=== PATIENT | female | born 1990 | race Asian ===

== ENCOUNTER 2020-12-07 16:15 | Inpatient (IN) ==
[2020-12-07] MEDS ORDERED: OXYTOCIN 30 UNITS/500 ML BAG IV PRN (16:25)
--- NOTE | 2020-12-07 16:53 | History & Physical Report ---
Date of Service December 07, 2020 Assessment & Plan (1) Supervision of normal intrauterine in primigravida: 30yo at 40.5 weeks GA. Presents in labor. 1. Fetus: Cat 1 2. Labor: Regular contraction. 3. GBS negative 4. Vitals: WNL History of Present Illness Primary Care Provider: [place] PCP 30yo at 40.5 weeks GA. Presents in early labor. Reporting regular painful contractions. Denies VB, LOF. Good FM. uncomplicated to date. Blood Type & RH O+ Antibody Screen negative HCT/HGB 35.9/12.5 Platelets 225 Pap Test Chlamydia negative Gonorrhea negative Rubella immune RPR negative (syphillis antibody) Urine Culture/Screen < 10,000 cfu/ml HBsAg non reactive HIV non reactive MCV 93.0 AFP- negative (06/16/20) Allergies Allergy/AdvReac Type Severity Reaction Status Date / Time No Known Allergies Allergy Verified 12/07/20 17:19 Home Medications Medication Instructions Recorded Confirmed Type ferrous sulfate [iron] 325 mg 12/07/20 History prenat.vits,manuela,cak-toke-ebvbi 1 tab PO DAILY 12/07/20 12/07/20 History [ Vitamin] Patient History Medical History Pain in symphysis pubis during Symphysis pubis disruption Vaginal bleeding during Surgical History History of hip surgery S/P dilation and curettage Social History (Updated 08/31/20 @ 09:50 by Karen Stacy) Smoking Status: Never smoker Hx Alcohol Use: No Hx Substance Use: No Preferred Language: Luxembourgish 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 Other Information That Helps Us Care for You: No Feels Safe at Home: Yes Safety Concerns: Feels Safe At This Time Assistive Devices: None Physical Exam Constitutional: WD/WN, vitals as above Respiratory: normal respiratory effort; no respiratory distress, no labored breathing and no retractions Cardiovascular: Rate/Rhythm: regular rate Gastrointestinal (Abdomen): Percussion/Palpation: abdomen soft; abdomen nontender, no guarding and abdomen not rigid Genitourinary: OB Exam Abdomen: + vertex Manual OB Exam: + cervical dilation 3 cm, + cervical effacement 90% and + station -1 OB Exam Monitor Tracing: + external FHT monitor used, + external uterine monitor used, + category I and + normal FHT variability; no early decelerations present, no late decelerations present and no variable decelerations Results & Data ([facility]) Vital Signs (Past 12 Hours) Vital Signs Pulse BP 12/07/20 16:20 63 97/60 L Coding Level of Care Code None Diagnoses Supervision of normal intrauterine in primigravida Z34.00
[2020-12-07 16:54] LABS: Hematocrit (blood only) 35.8 % (37-47); Hemoglobin 12.7 g/dL (12.0-16.0); Mean Corpuscular Hemoglobin 34.4 pg (25-34); Mean Corpuscular Hgb Conc 35.5 g/dL (32-36); Mean Platelet Volume 9.7 fL (7.4-10.4); Platelet Count 164 K/uL (130-400); RDW Coefficient of Variation 12.5 % (11.5-14.5); RDW Standard Deviation 44.1 fL (36.4-46.3); Red Blood Count 3.69 M/uL (4.2-5.4); White Blood Count 9.73 K/uL (4.8-10.8)
[2020-12-07] MEDS: BUTORPHANOL TARTRATE 1 MG/ML VIAL IV PRN ×2 (17:04→20:51)
[2020-12-07] MEDS: LACTATED RINGER'S 1,000 ML IV PRN ×2 (17:04→20:30)
--- NOTE | 2020-12-07 19:16 | Labor Progress Brief Note ---
Date of Service December 07, 2020 Subjective Reason For Note: Routine Evaluation Assessment & Plan (1) Supervision of normal intrauterine in primigravida: 30yo at 40.5 weeks GA. Presents in labor. 1. Fetus: Cat 1 2. Labor: Regular contraction. Progressing well 3. GBS negative 4. Vitals: WNL Admission and Anticipated Discharge Date Admission Date: December 07, 2020 Physical Exam Genitourinary: OB Exam Abdomen: + vertex Manual OB Exam: + cervical dilation 5 cm, + cervical effacement 90% and + station -1 OB Exam Monitor Tracing: + external uterine monitor used, + intra-uterine pressure catheter used, + category I, + normal FHT variability and + variable decelerations; no early decelerations present and no late decelerations present Results & Data ([facility]) Vital Signs (Past 12 Hours) Vital Signs Temp Pulse Resp BP 12/07/20 17:37 67 124/75 12/07/20 17:06 58 L 116/72 12/07/20 16:39 36.7 C 63 20 97/60 L 12/07/20 16:20 63 97/60 L Coding Level of Care Code None Diagnoses Supervision of normal intrauterine in primigravida Z34.00
[2020-12-07] MEDS ORDERED: MINERAL OIL 30 ML UDC ONE (21:01)
[2020-12-08] MEDS ORDERED: LIDOCAINE HCL 1% 20 ML VIAL ONE (01:34)
[2020-12-08] MEDS ORDERED: MINERAL OIL 30 ML UDC ONE (02:37)
[2020-12-08] MEDS ORDERED: ACETAMINOPHEN 325 MG TAB PO PRN (03:09)
[2020-12-08] MEDS ORDERED: BENZOCAINE 20% AER SPR 82.5 GM CAN EXT PRN (03:09)
[2020-12-08] MEDS ORDERED: bisacodyL 10 MG SUPP PR PRN (03:09)
[2020-12-08] MEDS ORDERED: OXYTOCIN 30 UNITS/500 ML BAG IV PRN (03:09)
[2020-12-08] MEDS ORDERED: HYDROCORTISONE ACETATE 25 MG SUPP PR PRN (03:09)
[2020-12-08] MEDS ORDERED: DIPHTHERIA/TETANUS/PERTUSSIS 0.5 ML SYR/VIAL IM ONE (03:09)
[2020-12-08] MEDS ORDERED: SUPERCREAM 0.870% 15 GM JAR EXT PRN (03:09)
[2020-12-08] MEDS: IBUPROFEN 600 MG TAB PO PRN ×3 (04:52→22:12)
[2020-12-08] MEDS: DOCUSATE SODIUM 100 MG CAP PO SCH ×2 (09:43→20:04)
[2020-12-08] MEDS: PRENATAL VITAMIN 1 TAB PO SCH (09:43)
--- NOTE | 2020-12-08 10:04 | Delivery Summary ---
DATE OF OPERATION: 12/08/2020 PREOPERATIVE DIAGNOSES: 1. Normal spontaneous vaginal delivery with first-degree perineal laceration repair. 2. Spontaneous labor. POSTOPERATIVE DIAGNOSES: 1. Normal spontaneous vaginal delivery with first-degree perineal laceration repair. 2. Spontaneous labor. 3. Status post delivery. ESTIMATED BLOOD LOSS: 300 mL DRAINS: None. FLUIDS: Continuous lactated ringer. URINE OUTPUT: Not measured. COMPLICATIONS: None. FINDINGS: Viable with weight and Apgars pending. INDICATIONS: The patient is a 30-year-old who presented in active labor. The patient progressed without augmentation to complete-complete and +1 station, and felt a strong urge to push. The patient pushed for approximately 3 hours to achieve delivery. DESCRIPTION OF PROCEDURE: The patient progressed to 10 cm dilated, 100% effaced, +1 station, pushed over intact perineum without anesthesia and delivered a viable with weight and Apgars as noted above. Head of the delivered in OP position, restituted to left transverse. No nuchal cord was noted. Body and shoulders quickly followed. was noted to be vigorous upon delivery and a 1-minute delayed cord clamping was initiated. The cord was then double clamped and cut. remained on the maternal abdomen. Cord blood was obtained. Attention was turned to delivery of the placenta, delivered intact, 3-vessel cord, gentle cord traction. On inspection of perineum, vagina, and cervix there was noted to be a first degree perineal laceration, which was repaired with a continuous running locked stitch. Needle, sponge and instrument counts were correct at the completion of the case with mother and stable in immediate post-delivery period. I attest to the content of the Intraoperative Record and any orders documented therein. Any exception s are noted below.
[2020-12-09 06:26] LABS: Hematocrit (blood only) 33.2 % (37-47); Hemoglobin 11.6 g/dL (12.0-16.0)
--- NOTE | 2020-12-09 06:56 | Obstetrical Progress Note ---
Date of Service December 09, 2020 Assessment & Plan (1) state: cont current care Subjective Ambulation: ambulating normally Voiding: no voiding problems Passing Gas:: Yes Diet Tolerance:: regular diet Lochia:: Small Feeding Type:: breast feeding Current Pain Level(1-10): 2 Physical Exam ext neg Results & Data ([facility]) Vital Signs (Past 12 Hours) Vital Signs Temp Pulse Resp BP Pulse Ox 12/08/20 23:15 98.1 F 65 18 94/58 L 98 12/08/20 20:00 97.9 F 68 18 110/61 97
[2020-12-09] MEDS: PRENATAL VITAMIN 1 TAB PO SCH (08:27)
[2020-12-09] MEDS: IBUPROFEN 600 MG TAB PO PRN ×2 (08:27→12:55)
[2020-12-09] MEDS: DOCUSATE SODIUM 100 MG CAP PO SCH ×2 (08:27→19:48)
[2020-12-09] MEDS ORDERED: bisacodyL 5 MG TABEC PO SCH (20:00)
[2020-12-10] MEDS: IBUPROFEN 600 MG TAB PO PRN ×4 (00:36→20:37)
--- NOTE | 2020-12-10 07:06 | Obstetrical Progress Note ---
Date of Service December 10, 2020 Assessment & Plan (1) state: doing well, ready for d/c. instructions reviewed. f/u 6wks pp check. breast/rh pos, ri. Day #:: 2 Subjective Ambulation: ambulating normally Voiding: no voiding problems Diet Tolerance:: regular diet Lochia:: Small Feeding Type:: breast feeding denies pain issues. bottom ok, better than before. has not had sitz bath teaching Physical Exam Constitutional WD/WN, vitals as above Respiratory normal respiratory effort, lungs clear to auscultation Cardiovascular Rate/Rhythm: regular rate and regular rhythm Gastrointestinal (Abdomen) Inspection/Auscultation: abdomen normal to inspection Percussion/Palpation: abdomen soft; abdomen nontender fundus firm 2 cm below umbilicus Musculoskeletal nt calves no edema Neurologic grossly normal Psychiatric A+Ox3, euthymic affect Results & Data ([facility]) Vital Signs (Past 12 Hours) Vital Signs Temp Pulse Resp BP Pulse Ox 12/10/20 00:00 97.5 F L 63 16 109/65 96 12/09/20 19:45 97.9 F 71 20 104/64
[2020-12-10] MEDS: DOCUSATE SODIUM 100 MG CAP PO SCH ×2 (07:49→20:37)
[2020-12-10] MEDS: PRENATAL VITAMIN 1 TAB PO SCH (07:49)
== END 2020-12-10 20:53 | disposition home or self-care (01) | DRG 807 ==
LOC: OPB 16:15 → 4S1 16:16 → 4S2 12-08 05:41

== ENCOUNTER 2024-04-03 06:25 | Inpatient (IN) ==
--- NOTE | 2024-04-03 07:04 | History & Physical Report ---
Date of Service April 03, 2024 Assessment & Plan (1) Post term over 40 weeks: (2) PROM (premature rupture of membranes): (3) Elderly multigravida: Plan admit, iv, labs. consider pitocin in labor pattern does not pickup, reexamine to see if need to arom forebag. fhts categ 1. History of Present Illness Chief Complaint: leaking fluid Primary Care Provider: NO PCP 33yo with cc of leaking clear fluid at 40+wks presents to LD. She noted larger gush and now trickle. Wore very absorbant pad into hospital and so not much visible on pad. Few ctx now have begun. 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 Vaginal bleeding during Surgical History History of hip surgery S/P dilation and curettage Family History Mother Hypertension Grandmother (Maternal) Stroke Aunt Breast cancer Environmental allergies Grandmother (Paternal) Stomach cancer Father Heart disease Myocardial infarction Other No family history of adverse response to anesthesia No family history of bleeding disorder Denies family history of Ovarian cancer Prostate cancer Colorectal cancer Social History Smoking Status: Never smoker Do You Dip or Chew Tobacco: No; Hx Alcohol Use: Yes Alcohol Intake Frequency Comment: 1-2 drinks per week Hx Substance Use: No Preferred Language: Yemeni Biomedical Engineering Aide Required: No Beliefs That Will Affect Care: None marital status: marital status details: Olu Billings(41) [phone] Current Living Situation: Spouse and Family Current Living Situation Comment: lives with spouse, child, no pets. current occupational status: employed current occupation: researcher/assistant merchandise manager at [employer] Feels Safe at Home: Yes Assistive Devices: None Review of Systems as per Subjective / HPI Physical Exam Constitutional: WD/WN, vitals as above Respiratory: normal respiratory effort, lungs clear to auscultation Cardiovascular: Rate/Rhythm: regular rate and regular rhythm Gastrointestinal (Abdomen): soft gravid nt efw 7-8# Musculoskeletal: no edema nontender calves Neurologic: grossly normal Psychiatric: A+Ox3, euthymic affect Genitourinary: Manual OB Exam: + cervical dilation (palpable smooth membrane ?forebag) 3 cm, + cervical effacement 60%, + station -2 and + amniotic fluid (SSE , small fluid puddle, alot of dc) clear, nitrazine positive and ferning present OB Exam Monitor Tracing: + external FHT monitor used, + external uterine monitor used (q8), + category I and + normal FHT variability Results & Data Vital Signs (Past 12 Hours) Vital Signs Temp Pulse Resp BP 04/03/24 06:44 98.1 F 72 18 105/61 Coding Level of Care Code None Diagnoses Post term over 40 weeks O48.0 PROM (premature rupture of membranes) O42.90 Elderly multigravida O09.529
[2024-04-03] MEDS ORDERED: LIDOCAINE 1% LOCAL 20 ML VIAL INFIL PRN (07:07)
[2024-04-03] MEDS ORDERED: OXYTOCIN 30 UNITS/NSS 30 UNITS/500 ML BAG IV PRN ×2 (07:07→14:47)
[2024-04-03] MEDS: LACTATED RINGER'S 1,000 ML IV PRN (07:10)
[2024-04-03 08:33] LABS: Hematocrit (blood only) 34.2 % (37.0-47.0); Hemoglobin 11.6 g/dl (12.0-16.0); Mean Corpuscular Hemoglobin 32.7 pg (25.0-34.0); Mean Corpuscular Hgb Conc 33.9 g/dL (32.0-36.0); Mean Corpuscular Volume 96.3 fL (80.0-100.0); Mean Platelet Volume 9.9 fL (9.4-12.4); Platelet Count 175 K/uL (130-400); Red Blood Count 3.55 M/uL (4.20-5.40); White Blood Count 10.29 K/ul (4.8-10.8)
[2024-04-03] MEDS: OXYTOCIN 30 UNITS/NSS 30 UNITS/500 ML BAG IV PRN (09:10)
[2024-04-03] MEDS ORDERED: NALBUPHINE HCL 5 MG in SYRINGE 0 ML IV PRN (11:30)
[2024-04-03] MEDS ORDERED: BUPIVACAINE 0.25% PF 30 ML VIAL EPI PRN (11:30)
[2024-04-03] MEDS ORDERED: ROPIVACAINE 0.5% PF 5 MG/ML 20 ML VIAL EPI PRN (11:30)
[2024-04-03] MEDS ORDERED: fentaNYL citrate PF 100 MCG/2 ML VIAL EPI PRN (11:30)
[2024-04-03] MEDS ORDERED: diphenhydrAMINE 50 MG/ML VIAL IV PRN (11:30)
[2024-04-03] MEDS ORDERED: LIDOCAINE 2% MPF LOCAL 5 ML VIAL EPI PRN (11:30)
[2024-04-03] MEDS ORDERED: NALOXONE HCL 1 MG in SODIUM CHLORIDE 0.9% 1,000 ML IV PRN (11:30)
[2024-04-03] MEDS ORDERED: SODIUM CHLORIDE 0.9% PF INJ 10 ML VIAL EPI PRN (11:30)
[2024-04-03] MEDS ORDERED: NALOXONE HCL 0.4 MG/1 ML VIAL/CARP IV PRN (11:30)
[2024-04-03] MEDS ORDERED: fentANYL 2 MCG/ML BUPIVacaine 0.125%-NSS 100ML BAG EPI PRN (11:30)
[2024-04-03] MEDS ORDERED: ePHEDrine sulfate 50 MG/ML AMP IV PRN (11:30)
--- NOTE | 2024-04-03 11:30 | Anesthesiology Consultation ---
Date of Service April 03, 2024 Assessment & Plan (1) Encounter for pre-operative examination: Chart Review Chart Review: Patient NOT seen in Pre Admission Testing and Acceptable Risk for Labor Epidural Consults Requested none History Height/Weight Height: 5 ft 6 in Weight: 85.275 kg Allergies Allergy/AdvReac Type Severity Reaction Status Date / Time No Known Drug Allergies Allergy Unknown Verified 04/03/24 06:45 pollen extracts Allergy Sneezing Verified 04/01/24 09:27 Medications Home Medications Medication Instructions Recorded Confirmed Last Taken 21-iron fu-folic acid 1 tab PO DAILY 08/15/23 04/03/24 04/02/24 [ Complete] ferrous sulfate 1 tab PO DAILY 01/29/24 04/03/24 Unknown Breast Pump #1 ea 03/25/24 04/01/24 Unknown Active Medications Generic Name Dose Route Start Last Admin Trade Name Freq PRN Reason Stop Dose Admin Oxytocin 30 units in 500 mls @ 7 mls/hr 04/03/24 07:07 04/03/24 11:00 Pitocin 30 Units/Nss IV 04/05/24 07:06 0.42 units/hr .Q24H PRN 7 mls/hr Labor Induction/Augmentation Titration Protocol 0.42 UNITS/HR Lactated Ringer's 1,000 mls @ 125 mls/hr 04/03/24 07:07 04/03/24 09:00 Lr IV 04/05/24 07:06 125 mls/hr .Q8H PRN Administration L&D Protocol Protocol Past Medical History Medical History History of chicken pox Symphysis pubis disruption Pain in symphysis pubis during Vaginal bleeding during Past Family History Family History Mother Hypertension Grandmother (Maternal) Stroke Aunt Breast cancer maternal Environmental allergies maternal Grandmother (Paternal) Stomach cancer Father Heart disease Myocardial infarction Other No family history of adverse response to anesthesia No family history of bleeding disorder Denies family history of Ovarian cancer Prostate cancer Colorectal cancer Past Surgical History Surgical History S/P dilation and curettage 2013 History of hip surgery left-2016 Social History Smoking Status: Never smoker Do You Dip or Chew Tobacco: No Hx Alcohol Use: Yes Hx Substance Use: No substance use type: does not use Physical Exam Vital Signs Last Vital Signs Temp 97.5 F L 04/03/24 10:20 Pulse 69 04/03/24 10:17 Resp 18 04/03/24 07:35 BP 94/61 L 04/03/24 10:17 O2 Del Method Room Air 04/03/24 06:53 Testing Laboratory Results 04/03/24 08:17
[2024-04-03] MEDS: BUPIVACAINE 0.25% PF 30 ML VIAL ONE (11:50)
[2024-04-03] MEDS: LIDOCAINE 2%/EPINEPHRINE 1:200,000 20 ML PF ONE (11:50)
[2024-04-03] MEDS: fentaNYL citrate PF 100 MCG/2 ML VIAL ONE (11:50)
[2024-04-03] MEDS: fentANYL 2 MCG/ML BUPIVacaine 0.125%-NSS 100ML BAG ONE (11:51)
[2024-04-03] MEDS: BUPIVACAINE 0.25% PF 30 ML VIAL EPI STA (11:55)
[2024-04-03] MEDS: SODIUM CHLORIDE 0.9% PF INJ 10 ML VIAL ONE (11:55)
[2024-04-03] MEDS: LIDOCAINE 2%/EPINEPHRINE 1:200,000 20 ML PF EPI STA (11:55)
[2024-04-03] MEDS: fentaNYL citrate PF 100 MCG/2 ML VIAL EPI STA (11:55)
[2024-04-03] MEDS: SODIUM CHLORIDE 0.9% PF INJ 10 ML VIAL EPI STA (11:56)
[2024-04-03] MEDS: ePHEDrine sulfate 50 MG/ML AMP ONE (14:25)
--- NOTE | 2024-04-03 14:34 | Delivery Summary ---
Vaginal Delivery Summary Date of Service April 03, 2024 Vaginal Delivery Summary and 1st Degree LAC Vaginal Delivery Summary: Pre-delivery diagnoses: 33yo @ 39 6/7, spontaneous labor, bilateral choroid plexus cysts, AMA Post-delivery diagnoses: same Procedure: spontaneous vaginal delivery, repair of 1st degree Surgeon: Perlita Hines DO Complications: none Findings: Viable female . Apgars: 9/9 . Weight pending, please see nursery records Estimated QBL: 215cc Description of delivery: The patient progressed to complete with epidural anesthesia. She then began to push. She spontaneously vaginally delivered a viable from the cephalic presentation. The head delivered in GWENDOLYN position. Nuchal x 1, too tight to reduce - delivered through. The anterior shoulder delivered, followed by the posterior shoulder, followed by the body. The baby was placed on mother's abdomen and a spontaneous cry was heard. Delayed cord clamping was employed, and the cord was doubly clamped and cut. Cord blood was obtained. The placenta was delivered spontaneously intact with a 3-vessel cord. The uterus and vagina were swept of clots and debris. IV pitocin was given. The uterus became firm. The cervix, vagina, and perineum were inspected and 1st degree laceration was noted. This was repaired with 3-0 Vicryl in standard fashion. Excellent hemostasis was observed. The mother and baby are recovering in stable and good condition in the room. Sponge, needle and instrument counts were correct x 2. Perlita Hines DO [facility] Vaginal Delivery Charge Vaginal Delivery Codes: 78145 global code for the antepartum, delivery, and post- Delivery Type Details: and 1st Degree LAC
[2024-04-03] MEDS ORDERED: HYDROCORTISONE ACETATE 25 MG SUPP PR PRN (14:47)
[2024-04-03] MEDS ORDERED: ACETAMINOPHEN 325 MG TAB PO PRN (14:47)
[2024-04-03] MEDS ORDERED: bisacodyL 10 MG SUPP PR PRN (14:47)
[2024-04-03] MEDS ORDERED: DIPHTHER/TETAN/PERTUS Vaccine (Tdap, Adol/Adult) 0.5mL IM ONE (14:47)
--- NOTE | 2024-04-03 16:00 | Anesthesia Procedure Note ---
Date of Service April 03, 2024 Anesthesia Post Epidural Note Vital Signs Vital Signs: Temp Pulse Resp BP Pulse Ox O2 Del Method 36.9 C 68 16 103/58 L 98 Room Air 04/03/24 13:54 04/03/24 15:56 04/03/24 13:54 04/03/24 15:56 04/03/24 15:21 04/03/24 06:53 Pain Intensity Lower Pelvic: Pain Intensity: 10 Notes Mental Status: alert / awake / arousable and participated in evaluation Nausea / Vomiting: adequately controlled Pain: adequately controlled Airway Patency, RR, SpO2: stable & adequate BP & HR: stable & adequate Hydration State: stable & adequate
[2024-04-03] MEDS: BENZOCAINE 20% SPRY 85 APPLN/85 GM CAN EXT PRN (17:06)
[2024-04-03] MEDS: IBUPROFEN 600 MG TAB PO PRN (18:37)
[2024-04-03] MEDS: DOCUSATE SODIUM 100 MG CAP PO SCH (21:20)
[2024-04-04 06:11] LABS: Hematocrit (blood only) 30.4 % (37.0-47.0); Hemoglobin 10.3 g/dl (12.0-16.0)
--- NOTE | 2024-04-04 06:15 | Obstetrical Progress Note ---
Date of Service April 04, 2024 Assessment & Plan (1) Encounter for care and examination after delivery: Plan 33 yo post- day 1 s/p Doing well this morning Vital signs reviewed Rubella immune, BTG: O + Encourage breast feeding Continue post care Discharge home today, instructions reviewed Follow up in 6 weeks in office Admission and Anticipated Discharge Date Admission Date: April 03, 2024 Supervising Physician Co-Signing Physician Notes Resident Physician Supervision Note: I interviewed and examined the patient. Discussed with Dr. Binh Huff and agree with findings and plan as documented in the note. Any exceptions or clarifications are listed here: PPD#1 doing well. Desires DC home, reviewed instructions. Followup 6w PP. Documented By: Perlita Hines, Subjective 33 yo post- day 1 s/p Ambulation: ambulating normally Voiding: no voiding problems Passing Gas: Yes Diet Tolerance: regular diet Lochia:: Small Feeding Type: breast feeding + bottle feeding Current Pain Level: moderate Resting comfortably this AM in NAD. Denies VILLALPANDO, CP, SOB, N/V/D, LE pain/swelling. Review of Systems Review of Systems: as per HPI Physical Exam Physical Exam: General: patient resting comfortably, NAD, non-toxic in appearance, AA&O x 4, answers questions appropriately. Heart: +S1/S2, regular, no m/r/g Lungs: equal air entry bilaterally, no rales/rhonchi/wheezes Abd: +BS, soft, NT/ND, uterine fundus firm at umbilicus Ext: warm, no clubbing/cyanosis or edema, Anthony's neg. Neuro: nonfocal, patient AA&O x 4, speech intact, no facial droop, moving all extremities on command. Results & Data Vital Signs (Past 12 Hours) Vital Signs Temp Pulse Resp BP Pulse Ox O2 Del Method 04/04/24 03:20 37.0 C 63 20 100/64 98 Room Air 04/03/24 23:50 36.6 C 66 20 106/67 97 Room Air 04/03/24 19:50 36.8 C 60 20 97/60 L 97 Room Air Resident Activity Tracking Resident Involvement: Resident Care Provided Care Provided: OB Delivery
[2024-04-04] MEDS: PRENATAL VITAMIN 1 TAB PO SCH (08:48)
[2024-04-04] MEDS ORDERED: bisacodyL 5 MG TABEC PO SCH (20:00)
== END 2024-04-04 18:30 | disposition home or self-care (01) | DRG 806 ==
LOC: OPB 06:25 → 4S1 06:30 → 4E2 17:00
DX: Z37.0 Single live birth; O42.02 Full-term premature rupture of membranes, onset of labor within 24 hours of rupture; O48.0 Post-term pregnancy; O99.354 Diseases of the nervous system complicating childbirth; O70.0 First degree perineal laceration during delivery; Z91.048 Other nonmedicinal substance allergy status; G93.0 Cerebral cysts; O69.1XX0 Labor and delivery complicated by cord around neck, with compression, not applicable or unspecified; Z3A.40 40 weeks gestation of pregnancy